=== PATIENT | female | born 1985 | race Caucasian/White ===

== ENCOUNTER 2017-09-22 01:40 | Emergency (ER) | payer MEDICAID, SELFPAY ==
[2017-09-22 01:41] VITALS: BP 155/95; PULSE 87; RESP 18; TEMP 36.6; O2SAT 97; BMI 38.5
--- NOTE | 2017-09-22 02:02 | ED.DCSUM_ITS ---
- ER Visit Summary Date of Service: 09/22/17 Chief Complaint: [] Sore throat History of Present Illness: The patient is a 31 F Zentz with sore throat since 4 PM yesterday gradual onset. Recent influenza. She is Benadryl tonight with mild relief. She also use cough drops Physical Examination: [] Vital signs reviewed General: Well-nourished well-developed Head: Normocephalic atraumatic Eyes: Pupils equal round and reactive to light extraocular movements intact ENT: TMs clear no hemotympanum no trauma throat exam normal Neck: Nontender full range of motion Cardiovascular: Regular rate rhythm no murmurs normal S1-S2 Respiratory: No distress clear to auscultation bilaterally chest nontender Abdomen: Soft nontender nondistended normal bowel sounds no masses Back: Nontender no CVA tenderness Extremities: Nontender active range of motion ?4 extremities no trauma Skin: Normal color no trauma Neuro alert oriented cranial nerves II through XII intact normal strength sensation reflexes Test Results: [] Emergency Department Course and Treatment: [] Reassured. Her throat looks completely normal. She will use cold ice salt water gargles Benadryl as needed. Treatment Plan: [] Disposition: [] Impression: [] Sore throat This note was generated with [employer] dictation software. It may contain incorrect words, spelling, and punctuation that were not noted in review of the chart prior to signing ED Disposition - Plan for ED Patient: Chief Complaint: Sore Throat Referrals: Geovanny Lopez MD [Primary Care Provider] -
--- NOTE | 2017-09-22 02:02 | ED.DEP ---
ED Disposition - Plan for ED Patient: Disposition: Home or Assisted Living Chief Complaint: Sore Throat Instructions: ED Pharyngitis Viral Referrals: Geovanny Lopez MD [Primary Care Provider] -
== END 2017-09-22 02:07 | disposition home or self-care (01) ==
PROVIDERS: Emergency Provider Emergency Medicine; Family Provider Family Medicine; PCP Family Medicine
DX: J02.9 Acute pharyngitis, unspecified (principal)
CPT/HCPCS: 99282

== ENCOUNTER → 2019-02-10 | Outpatient (CLI) | payer MEDICAID, SELFPAY ==
[2019-02-10 17:32] LABS: Hematocrit 36.3 % (37-47); Hemoglobin 12.2 g/dl (12.0-15.0); Mean Corp Hgb Conc 33.6 g/gl (32-36); Mean Corpuscular Hgb 27.7 pg (27.0-32.0); Mean Corpuscular Volume 82.3 fL (81-99); Mean Platelet Vol. 11.1 fl (6.2-12.0); Platelet Count 231 K/mm3 (150-450); RBC Distribution Width SD 38.2 fl (35.1-43.9); Red Blood Count 4.41 M/mm3 (4.2-5.4)
[2019-02-10 17:34] LABS: Scan Indicated on CBC? Y/N NO
[2019-02-10 17:53] LABS: ALB/GLOB Ratio 1.1 RATIO (0.9-2.4); AST(SGOT) 19 U/L (15-37); Alanine Aminotransfer ALT/SGPT 33 U/L (13-56); Albumin, Serum 3.6 g/dL (3.2-5.0); Alkaline Phosphatase 104 U/L (45-117); Anion Gap 9 (5-15); BUN 12 mg/dL (7-18); BUN/Creat Ratio 17.4 RATIO (10-20); Calcium,Total 8.7 mg/dL (8.5-10.1); Chloride 108 mmol/L (98-107); Creatinine, Serum 0.69 mg/dL (0.55-1.02); EST Glomerular Filtration Rate 103 mL/min (>60); Est Glom Filt Rate - Afr Amer 124 mL/min (>60); Free T3 2.8 pg/mL (2.18-3.98); Globulin 3.4 g/dL (2.2-4.2); Glucose 125 mg/dL (74-106); Iron 43 ug/dL (50-170); Sodium Level 144 mmol/L (136-145); T4 Free Direct 0.92 ng/dL (0.76-1.46); Thyroid Stim Hormone (TSH) 0.91 uIU/mL (0.358-3.74)
[2019-02-10 17:56] LABS: Vitamin B12 1361 pg/mL (211-911); Vitamin D,25 Hydroxy 23.2 ng/mL (29.95-100.01)
== END | disposition home or self-care (01) ==
LOC: MFPLAB 14:59
PROVIDERS: Family Provider Family Medicine; PCP Family Medicine; Referring Provider Family Medicine; Visit Provider Family Medicine
DX: R53.83 Other fatigue (principal); R63.5 Abnormal weight gain
CPT/HCPCS: 36415; 80053; 82306; 82533; 82607; 83540; 84439; 84443; 84481; 85027

== ENCOUNTER → 2019-06-10 14:30 | Outpatient (CLI) | payer MEDICAID, SELFPAY ==
[2019-03-31 08:38] VITALS: BMI 38.5
[2019-06-10 16:06] LABS: Iron 38 ug/dL (50-170)
[2019-06-10 16:09] LABS: Internal QC Validated? YES +Cl - CLEAR BKGD
[2019-06-10 16:10] LABS: Pregnancy, Serum, hCG Quali. POSITIVE Negative
[2019-06-10 16:16] LABS: Vitamin B12 919 pg/mL (211-911); Vitamin D,25 Hydroxy 30.2 ng/mL (29.95-100.01)
== END ==
PROVIDERS: Family Provider Family Medicine; PCP Family Medicine; Referring Provider Family Medicine; Visit Provider Family Medicine
DX: D64.9 Anemia, unspecified (principal); R68.89 Other general symptoms and signs; E55.9 Vitamin D deficiency, unspecified; Z32.00 Encounter for pregnancy test, result unknown
CPT/HCPCS: 36415; 82306; 82607; 83540; 84703

== ENCOUNTER → 2019-06-29 15:25 | Outpatient (CLI) | payer MEDICAID, SELFPAY ==
[2019-03-31 08:38] VITALS: BMI 38.5
[2019-06-29 18:11] LABS: Chlamydia Trachomatis by PCR Negative (Negative); Neisserai gonorrhoeae by PCR Negative (Negative); Probe Check PASS; Sample Adequacy Control PASS; Specimen Processing Control PASS
== END ==
PROVIDERS: Family Provider Family Medicine; PCP Family Medicine; Visit Provider Obstetrics & Gynecology
DX: Z32.01 Encounter for pregnancy test, result positive (principal); Z11.3 Encounter for screening for infections with a predominantly sexual mode of transmission
CPT/HCPCS: 36415; 84702; 87491; 87591

== ENCOUNTER 2019-12-10 18:07 | Emergency (ER) | payer MEDICAID, SELFPAY ==
[2019-03-31 08:38] VITALS: BMI 38.5
[2019-12-10 18:10] VITALS: BP 154/98; PULSE 134; RESP 16; TEMP 37.3; O2SAT 100; BMI 41.0
[2019-12-10] MEDS: Tetracaine 0.5% Ophthalmic Bottle 5 DRP LEFT EYE (18:26)
[2019-12-10] MEDS: Fluorescein 1 MG STRIP 1 STRIP LEFT EYE (18:26)
--- NOTE | 2019-12-10 18:35 | ED.VISSUMM ---
- ER Visit Summary Date of Service: 12/10/19 Chief Complaint: Foreign body sensation left eye. History of Present Illness: The patient is a 34 F past medical history of prior ectopic. Patient has a true allergy to prednisone and cortisone. Patient had poison vipul over her whole body including her face for last 3 days. She is a foreign body sensation in her left eye which began today. Denies any visual change. No known trauma. She wears glasses but not contacts. She does not remember scratching her eye. Physical Examination: Young female no acute distress vital signs stable afebrile. HEENT exam pupils are round and reactive to light. Extraocular motions are intact. Tetracaine was placed in the left eye which gave her immediate relief. Fluorescein stain. Slit-lamp examination of the left eye reveals a corneal abrasion between 9 PM and 12:00 on the left eye along the iris and the edge of the pupil. No foreign body. No globe rupture. No signs of infection. No discharge. Her face chest back have a rash consistent with poison vipul. Lungs clear to auscultation. Heart regular rhythm no murmur. Abdomen soft nontender. Moving all 4 extremities. Test Results: None Emergency Department Course and Treatment: History and exam are consistent with a left eye corneal abrasion. She also has poison vipul which she is treating at home already with Benadryl. Treatment Plan: Bacitracin ophthalmic ointment 4 times a day till gone. Tetracaine drops for pain for the next 24 hours then must discard and not use any further. Follow-up with [facility]. Disposition: Discharge Impression: Acute left eye corneal abrasion Generalized poison vipul This note was generated with [employer] dictation software. It may contain incorrect words, spelling, and punctuation that were not noted in review of the chart prior to signing ED Disposition - Plan for ED Patient: Referrals: Geovanny Lopez MD [Primary Care Provider] -
--- NOTE | 2019-12-10 18:39 | ED.DEP ---
ED Disposition - Plan for ED Patient: Disposition: Home or Assisted Living Instructions: ED Corneal Abrasion, ED Dermatitis Poison Leta Referrals: Gonsalo Zamora MD [STAFF PHYSICIAN] - 3-5 Days Additional Instructions: You have a corneal abrasion to your left eye between 9:00 and midnight. You can use the eyedrops for the next 24 hours but not after tomorrow night due to long-term use retards healing. Bacitracin ophthalmic ointment to your left eye 4 times a day till gone. Tylenol and Motrin for pain. Follow-up with [facility] Dr. Zamora for further evaluation of your left eye corneal abrasion.
--- NOTE | 2019-12-10 18:39 | ED.RN ---
Per Dr. Epperson, do not need to do visual acuity.
[2019-12-10 18:44] VITALS: RESP 17
== END 2019-12-10 18:47 | disposition home or self-care (01) ==
PROVIDERS: Emergency Provider Emergency Medicine; PCP Family Medicine
DX: S05.02XA Injury of conjunctiva and corneal abrasion without foreign body, left eye, initial encounter (principal); L23.7 Allergic contact dermatitis due to plants, except food; X58.XXXA Exposure to other specified factors, initial encounter; Y92.9 Unspecified place or not applicable
CPT/HCPCS: 99282

== ENCOUNTER → 2021-05-14 17:23 | Outpatient (CLI) | payer MEDICAID, SELFPAY ==
--- NOTE | 2021-05-14 17:40 | RAD_ITS ---
STUDY: X-RAY CHEST REASON FOR EXAM: Female, 35 years old. SOB TECHNIQUE: PA and lateral views of the chest. COMPARISON: None. FINDINGS: The lungs are clear and expanded. There is no demonstrated pleural abnormality. Normal size heart. Normal mediastinum and kumar. Normal visualized pulmonary arteries. Normal visualized aortic arch and descending thoracic aorta. Normal visualized thoracic spine. Normal visualized ribs, clavicles, and shoulders. There is no demonstrated abnormality of the visualized soft tissue structures of the upper abdomen. RAD/Chest PA and Lateral IMPRESSION: Normal x-ray examination of the chest. Electronically Signed: Nicholas George MD at 5:43 EDT Tel , Service support ,
[2021-05-14 18:00] LABS: Hematocrit 38.4 % (37-47); Hemoglobin 11.8 g/dL (12.0-15.0); Mean Corp Hgb Conc 30.7 g/dL (32-36); Mean Corpuscular Hgb 23.3 pg (27.0-32.0); Mean Corpuscular Volume 75.9 fL (81-99); Mean Platelet Vol. 11.2 fl (6.2-12.0); Platelet Count 297 K/mm3 (150-450); RBC Distribution Width CV 14.8 % (11.6-14.6); RBC Distribution Width SD 40.3 fl (35.1-43.9); RET-HE 27.9 pg (30-35); Red Blood Count 5.06 M/mm3 (4.2-5.4); Reticulocyte Count 1.83 % (0.5-1.5); White Blood Count 6.9 K/mm3 (4.4-11.0)
[2021-05-14 18:51] LABS: Anion Gap 9 (5-15); BUN 13 mg/dL (7-18); BUN/Creat Ratio 18.1 RATIO (10-20); Calcium,Total 9.4 mg/dL (8.5-10.1); Chloride 102 mmol/L (98-107); Creatinine, Serum 0.72 mg/dL (0.55-1.02); EST Glomerular Filtration Rate 97 mL/min (>60); Est Glom Filt Rate - Afr Amer 117 mL/min (>60); Ferritin 5 ng/mL (8-252); Glucose 106 mg/dL (74-106); Iron 27 ug/dL (50-170); Iron Binding Capacity,Total 496 ug/dL (250-450); Magnesium 2.2 mg/dL (1.6-2.6); Sodium Level 139 mmol/L (136-145); Thyroid Stim Hormone (TSH) 1.24 uIU/mL (0.358-3.74)
== END ==
PROVIDERS: PCP Family Medicine; Referring Provider Family Medicine; Visit Provider Family Medicine
DX: R00.2 Palpitations (principal); D64.9 Anemia, unspecified; R06.02 Shortness of breath
CPT/HCPCS: 36415; 71046; 80048; 82728; 83540; 83550; 83735; 84443; 85027; 85045

== ENCOUNTER → 2021-06-25 12:39 | Outpatient (CLI) | payer MEDICAID, SELFPAY ==
--- NOTE | 2021-06-25 12:40 | STEWCON_ITS ---
Reason For Study: Dyspnea Stress Results Protocol: Raymond Protocol WITH DEFINITY Maximum Predicted HR: 183 bpm Target HR: 156 bpm % Maximum Predicted HR: 93 % DurationHeart Rate Stage (mm:ss) (bpm) BP Comment Baseline 98 130/78No Chest Pain; 4 ML Diluted Definity Raymond Protocol Stage I 3:00 155 146/72No Chest Pain; Mild to Mod Dyspnea Raymond Protocol Stage II 1:46 171 / No Chest Pain; Mod to Severe Dyspnea Recovery 109 130/72No Chest Pain; No Dyspnea Stress Duration: 4:46 mm:ss Maximum Stress HR: 171 bpm METS: 7 Baseline Echocardiogram Findings Stress Echo Wall motion Data Resting WM Intermediate WM Stress WM Resting Wall Motion Wall Motion Stress All segments Normal. All segments Hyperkinetic. Ejection Fraction 60 %. Ejection Fraction 70 %. Stress Results Heart rate response: Adequate Blood pressure response: Normal resting blood pressure-appropriate response Cardiac rhythm: No cardiac dysrhythmias reported Functional capacity: Decreased Stopped secondary to: Dyspnea. EKG Data Baseline ECG: Sinus rhythm. Peak exercise ECG: No obvious ECG changes. Symptoms with Stress No report of chest discomfort during exercise or recovery. ECHO/Stress Test Echo W/Contrast Interpretation Summary Contrast injection performed Negative (adequate) stress echocardiogram Ordering Physician: Geovanny Lopez Referring Physician: Nicholas Dale Performed By: Quinton Daniel RCS
== END ==
PROVIDERS: PCP Family Medicine; Referring Provider Family Medicine; Visit Provider Family Medicine
DX: R06.02 Shortness of breath (principal)
CPT/HCPCS: 93017; 93350; Q9957; A4216; C8928; J3490

== ENCOUNTER 2021-09-10 12:13 | Outpatient (CLI) | payer MEDICAID, SELFPAY ==
[2021-09-10 14:04] VITALS: PULSE 100; PULSE 102; PULSE 109; PULSE 116; PULSE 124; PULSE 134; PULSE 94; PULSE 97; O2SAT 100; O2SAT 93; O2SAT 95; O2SAT 96; O2SAT 98; O2SAT 99
--- NOTE | 2021-09-11 07:16 | WT_ITS ---
PSN 6 Minute Walk Test 6 Minute Walk Test 6 Minute Walk Test: 6 Minute Walk Test PSN:6-Minute Walk Test Start: 09/10/21 14:03 Freq: Status: Active Protocol: [id number] Document 09/10/21 14:04 [facility] (Rec: 09/10/21 14:07 [facility] [id number]) 6 Minute Walk Test Date Performed 09/10/21 Time Performed 12:30 Height 5 ft 2.5 in Weight: 108.862 kg Weight in Pounds 240.[address]: David Santamaria Assistive device used: None Pre-test Oxygen Delivery Method Room Air Pulse Ox (%) 100 Pulse Rate (60-100 beats/min) 102 H Dyspnea Yared Scale (0-10) 0 1st minute Oxygen Delivery Method Room Air Pulse Ox (%) 96 Pulse Rate (60-100 beats/min) 97 Dyspnea Yared Scale (0-10) 1 Number of Rests Taken 0 2nd minute Oxygen Delivery Method Room Air Pulse Ox (%) 93 Pulse Rate (60-100 beats/min) 100 Dyspnea Yared Scale (0-10) 2 Number of Rests Taken 0 Reported Symptoms Increased Work of Breathing 3rd minute Oxygen Delivery Method Room Air Pulse Ox (%) 96 Pulse Rate (60-100 beats/min) 109 H Dyspnea Yared Scale (0-10) 3 Number of Rests Taken 0 Reported Symptoms Increased Work of Breathing 4th minute Oxygen Delivery Method Room Air Pulse Ox (%) 95 Pulse Rate (60-100 beats/min) 116 H Dyspnea Yared Scale (0-10) 3 Number of Rests Taken 0 Reported Symptoms Increased Work of Breathing 5th minute Oxygen Delivery Method Room Air Pulse Ox (%) 96 Pulse Rate (60-100 beats/min) 124 H Dyspnea Yared Scale (0-10) 3 Number of Rests Taken 0 Reported Symptoms Increased Work of Breathing 6th minute Oxygen Delivery Method Room Air Pulse Ox (%) 98 Pulse Rate (60-100 beats/min) 134 H Dyspnea Yared Scale (0-10) 3 Number of Rests Taken 0 Reported Symptoms Increased Work of Breathing Post-test Oxygen Delivery Method Room Air Pulse Ox (%) 99 Pulse Rate (60-100 beats/min) 94 Dyspnea Yared Scale (0-10) 0 Full Laps Walked 27 Partial Lap, Number of Tiles Walked 47 Total Distance Walked (ft) 1640 Interpretation Interpretation: The patient ambulated 1640 feet over the course of 6 minutes beginning on room air without assistive devices or breaks. Pretesting oxygen saturation was noted to be 100% on room air. With ambulation, the christy oxygen saturation was 93%. This represents a significant exertional oxygen desatura tion. Recommendations Recommendations: There is no indication for the use of supplemental oxygen at this time.
== END 2021-09-10 23:59 | disposition short-term general hospital (02) ==
LOC: PSN 12:14
PROVIDERS: PCP Family Medicine; Referring Provider Internal Medicine Critical Care Medicine; Visit Provider Internal Medicine Critical Care Medicine
DX: R06.00 Dyspnea, unspecified (principal)
CPT/HCPCS: 94618

== ENCOUNTER 2021-09-12 08:06 | Outpatient (CLI) | payer MEDICAID, SELFPAY ==
--- NOTE | 2021-09-13 10:05 | PFT ---
INTRODUCTION: The patient is a 35-year-old female that presents for pulmonary function studies secondary to a diagnosis of dyspnea. Respiratory therapy reported good patient effort. Bronchodilators were used during testing. INTERPRETATION: Forced expiration spirometry demonstrates no evidence of a large airways obstructive ventilatory defect. There was no significant response to aerosolized bronchodilators. Spirograms are of good quality and plateau normally. Body plethysmography was performed and reveals lung volumes to be within normal limits. Diffusing capacity by single breath CO is within normal limits. IMPRESSION: Grossly normal pulmonary function studies.
== END 2021-09-12 23:59 | disposition short-term general hospital (02) ==
LOC: PSN 08:06
PROVIDERS: PCP Family Medicine; Referring Provider Internal Medicine Critical Care Medicine; Visit Provider Internal Medicine Critical Care Medicine
DX: R06.00 Dyspnea, unspecified (principal)
CPT/HCPCS: 94060; 94726; 94729

== ENCOUNTER 2021-10-22 23:00 | Outpatient (CLI) | payer MEDICAID, SELFPAY | END 2021-10-22 23:59 | disposition home or self-care (01) | PROVIDERS: PCP Family Medicine; Visit Provider Nurse Practitioner Acute Care | DX: G47.10 Hypersomnia, unspecified (principal) | CPT/HCPCS: 95810 ==

== ENCOUNTER 2022-03-19 13:39 | Emergency (ER) | payer MEDICAID, SELFPAY ==
[2022-03-19 13:40] VITALS: BP 189/104; PULSE 105; RESP 16; TEMP 36.6; O2SAT 98; BMI 43.5
--- NOTE | 2022-03-19 13:47 | EKG12_ITS ---
Test Reason : cp Blood Pressure : / mmHG Vent. Rate : 105 BPM Atrial Rate : 105 BPM P-R Int : 154 ms QRS Dur : 070 ms QT Int : 336 ms P-R-T Axes : 076 023 060 degrees QTc Int : 444 ms Sinus tachycardia Otherwise normal ECG Confirmed by DEISY MCNEIL, SARAH ([id number]), industrial editor XIOMARA FUENTES ([id number]) on 03/20/2022 1:23:05 PM Referred By: Confirmed By:SARAH OLIVAS MD
--- NOTE | 2022-03-19 13:58 | RAD_ITS ---
INDICATION: cp EXAMINATION/TECHNIQUE: X-RAY - XR Chest 2 Views COMPARISON: 05/14/2021. FINDINGS: LINES/DEVICES: None. LUNGS: No consolidation, edema or effusion. No pneumothorax. MEDIASTINUM AND CARDIOVASCULAR STRUCTURES: Cardiac silhouette not enlarged. Central airways and mediastinal contour are unremarkable. BONES AND SOFT TISSUES: Unremarkable. RAD/Chest PA and Lateral IMPRESSION: No radiographic evidence of acute cardiopulmonary disease. Electronically Signed: Wil Belcher MD at 14:27 EDT ,
[2022-03-19 14:07] LABS: Absolute Lymphocyte Count 1.88 X10^3/uL (0.83-4.51); Absolute Neutrophil Count 5.4 X10^3/uL (2.0-7.7); Basophil# 0.05 X10^3/uL; Basophil% 0.6 % (0-1); Eosinophil# 1.05 X10^3/uL; Hemoglobin 13.6 g/dL (12.0-15.0); Lymphocyte # 1.88 X10^3/ul (0.83-4.51); Lymphocyte % 21.5 % (19-41); Mean Corp Hgb Conc 32.4 g/dL (32-36); Mean Corpuscular Hgb 25.9 pg (27.0-32.0); Mean Platelet Vol. 10.6 fl (6.2-12.0); Monocyte# 0.34 X10^3/uL; Monocyte% 3.9 % (0-10); NRBC Flagged by Analyzer 0 % (0-5); Neutrophil # 5.35 X10^3/uL (2.7-7.7); Neutrophil % 61.2 % (47-70); Platelet Count 326 K/mm3 (150-450); RBC Distribution Width CV 13.2 % (11.6-14.6); RBC Distribution Width SD 37.7 fl (35.1-43.9); Red Blood Count 5.25 M/mm3 (4.2-5.4); White Blood Count 8.7 K/mm3 (4.4-11.0)
--- NOTE | 2022-03-19 14:12 | EX.ED.DYSGE1 ---
HPI History of Present Illness Chief Complaint: Chest Pain Narrative Narrative: Chief complaint says chest pain. Patient has no chest pain. She is here for left arm and left shoulder pain. Yesterday she had similar symptoms on the right side which seems to have subsided. No fever or chills. There is no back pain or tearing sensation. She has no pleuritic component. She has no lower extremity edema or calf pain. No DVT or PE risk factors. [facility] PFS Medical History Anemia COVID-19 Fatigue Hay fever Pneumonia Home Medications cholecalciferol (vitamin D3) 50 mcg (2,000 unit) capsule 50 mcg PO DAILY 08/19/21 [History Last Taken Unknown] ferrous sulfate 325 mg (65 mg iron) tablet 325 mg PO DAILY 08/19/21 [History Last Taken Unknown] albuterol sulfate 90 mcg/actuation aerosol inhaler (Ventolin HFA) 2 puff inhalation Q4H PRN shortness of breath or wheezing #18 grams 12/24/21 [Rx Last Taken Unknown] azithromycin 250 mg tablet 250 mg PO DAILY 03/19/22 [History Last Taken Unknown] Allergy/AdvReac Type Severity Reaction Status Date / Time cortisone Allergy Severe Hives Verified 03/19/22 13:42 prednisone Allergy Severe Anaphylaxis Verified 03/19/22 13:42 Family History Mother Cancer cervical Grandmother Kidney failure Grandfather Hypertension Grandmother Congestive heart failure Grandfather Alzheimer disease Surgical History History of salpingectomy Social History Smoking Status: Never smoker alcohol intake: current alcohol intake frequency: a few times a month Alcohol type: wine ROS ROS ED ROS Narrative Past medical history: Reviewed, mostly unremarkable. Medications: Reviewed Social history: Noncontributory Review of systems: All systems negative except as indicated General: No fever Eyes: No visual changes ENT: No upper airway congestion, normal voice Neck: No neck pain Cardiovascular: No chest pain. No palpitations. No pleuritic component. Respiratory: No shortness of breath or cough Gastrointestinal: No abdominal pain, nausea vomiting or diarrhea Genitourinary: No dysuria Musculoskeletal: Left shoulder pain. Skin: No rash Neurological: No memory loss, confusion or any focal weakness Psych: No recent behavioral changes Hematologic: No easy bleeding or easy bruising EXAM Physical Exam Narrative Exam Narrative: Physical exam General: Well nourished, Well developed, No Acute Distress Head: Normocephalic, Atraumatic Eyes: Conjunctiva not pale ENT: Moist mucous membranes Neck: Supple, Nontender, No lymphadenopathy Cardiovascular: Regular rate, Regular rhythm Respiratory: No distress, CTA bilaterally Abdomen: Soft, Nontender, Nondistended Back: Nontender, Normal Inspection. Negative for: CVA tenderness Extremities: Full range of motion of the shoulder, some tenderness over the insertion of the bicep proximally, however no bony tenderness. Skin: Normal color, No rash Neurological: Alert, Normal Strength, Normal Sensation Psychological: Normal affect Const Vital Signs: 03/19/22 13:40 03/19/22 13:45 03/19/22 14:45 Temperature 98 F Temperature Source Temporal Pulse Rate 105 H 99 Respiratory Rate 16 23 H Respiratory Effort Normal Non-Labored Blood Pressure 189/104 H 140/82 H Blood Pressure Mean 132 101 Pulse Ox 98 99 Oxygen Delivery Method Room Air Room Air MDM MDM Lab Data Labs: Laboratory Results - last 24 hr 03/19/22 03/19/22 03/19/22 14:00 14:00 14:00 WBC 8.7 RBC 5.25 Hgb 13.6 Hct 42.0 MCV 80.0 L MCH 25.9 L MCHC 32.4 RDW Std Deviation 37.7 RDW Coeff of Alejandro 13.2 Plt Count 326 MPV 10.6 Immature Gran % (Auto) 0.800 Neut % (Auto) 61.2 Lymph % (Auto) 21.5 [place] % (Auto) 3.9 Eos % (Auto) 12.0 H Baso % (Auto) 0.6 Absolute Neuts (auto) 5.4 Absolute Lymphs (auto) 1.88 Nucleated RBC % 0 D-Dimer Quant (PE/DVT) 0.86 H* Sodium 138 Potassium 3.7 Chloride 106 Carbon Dioxide 27.0 Anion Gap 5 BUN 9 Creatinine 0.82 Estim Creat Clear Calc 73.57 Est GFR (MDRD) Af Amer 100 Est GFR (MDRD) Non-Af 83 BUN/Creatinine Ratio 11.0 Glucose 139 H Calcium 9.4 Total Bilirubin 0.30 AST 15 ALT 23 Alkaline Phosphatase 101 Troponin I High Sens 3 Total Protein 7.6 Albumin 3.6 Globulin 4.0 Albumin/Globulin Ratio 0.9 Radiography Diagnostic Testing: Clinical Impression(s) from Imaging Studies Chest X-Ray 03/19/22 13:58 IMPRESSION: No radiographic evidence of acute cardiopulmonary disease. Electronically Signed: Wil Belcher MD at 14:27 EDT , Chest CTA 03/19/22 14:23 IMPRESSION: 1. Mild pneumonic consolidation and groundglass edema is present in the central to inferior aspect of the right upper lobe and within the right middle lobe. 2. Minor groundglass edema and a small peripheral infiltrate are also present in the right lower lobe. The left lung is clear. 3. No demonstrated pulmonary embolism or arterial dissection. Electronically Signed: Gómez Bradshaw MD at 15:15 EDT , Chest x-ray read by me and radiologist is normal EKG Initial EKG: Comments: Sinus rhythm with a rate of 105. Normal AL and QTc intervals. No ischemic changes. Interpreted by emergency doctor. Treatment and Re-Evaluation Narrative: Patient has a normal work-up she appears well. She does not have any evidence of thromboembolic disease or coronary disease. I believe she is stable for discharge. She can follow-up with her PCP Discharge Plan Triage Chief Complaint: Chest Pain ED Provider: Nicholas Carolina Dx/Rx/DC Orders Clinical Impression: Arm pain, Acute shoulder pain Instructions: Measuring Your Pain, Medicine for Pain Prescriptions: No Action ferrous sulfate 325 mg (65 mg iron) tablet 325 mg PO DAILY cholecalciferol (vitamin D3) 50 mcg (2,000 unit) capsule 50 mcg PO DAILY albuterol sulfate [Ventolin HFA] 90 mcg/actuation HFA aerosol inhaler 2 puff inhalation Q4H PRN (Reason: shortness of breath or wheezing) Qty: 18 6RF azithromycin 250 mg tablet 250 mg PO DAILY Primary Care Provider: Geovanny Lopez Referrals: Geovanny Lopez MD [Primary Care Provider] - 2 Days Disposition Disposition: Home, Self Care
[2022-03-19 14:20] LABS: D-Dimer Quantitative (DVT/PE) 0.86 FEU/ug/m (0.27-0.49)
--- NOTE | 2022-03-19 14:23 | CT_ITS ---
STUDY: CTA CHEST REASON FOR EXAM: Female, 36 years old. cp RADIATION DOSAGE (If Supplied By Facility): CTDIvol = ( 11.32 ) mGy, DLP = ( 522.39 ) mGycm TECHNIQUE: The examination was performed with the intravenous administration of IV 100mL Isovue-300. Post-processing of the angiographic images was performed, with multiplanar reformation and 3D reconstruction. Individualized dose optimization techniques were used for this CT. COMPARISON: Chest x-ray dated March 19, 2022 FINDINGS: Mild pneumonic consolidation and groundglass edema is present in the central to inferior aspect of the right upper lobe and within the right middle lobe. Minor groundglass edema and a small peripheral infiltrate are also present in the right lower lobe. The left lung is clear. Normal enhancement of the main pulmonary artery and right and left pulmonary arteries. Normal enhancement of the bilateral peripheral pulmonary arteries. There is no demonstrated pulmonary embolism. Normal thoracic aorta and visualized great vessels. There is no demonstrated aortic dissection. Normal heart and pericardium. There are no demonstrated calcifications of the coronary arteries. Normal mediastinum. Normal hilar regions. Normal visualized trachea and bronchi. The lungs are well expanded. Normal pleura. Normal chest wall structures. There are degenerative changes of thoracic spine. Normal visualized upper abdomen. CT/CTA Chest W/WO Contrast IMPRESSION: 1. Mild pneumonic consolidation and groundglass edema is present in the central to inferior aspect of the right upper lobe and within the right middle lobe. 2. Minor groundglass edema and a small peripheral infiltrate are also present in the right lower lobe. The left lung is clear. 3. No demonstrated pulmonary embolism or arterial dissection. Electronically Signed: Gómez Bradshaw MD at 15:15 EDT ,
[2022-03-19 14:26] LABS: ALB/GLOB Ratio 0.9 RATIO (0.9-2.4); AST(SGOT) 15 U/L (15-37); Alanine Aminotransfer ALT/SGPT 23 U/L (13-56); Albumin, Serum 3.6 g/dL (3.2-5.0); Alkaline Phosphatase 101 U/L (45-117); Anion Gap 5 (5-15); BUN 9 mg/dL (7-18); Calcium,Total 9.4 mg/dL (8.5-10.1); Chloride 106 mmol/L (98-107); Creatinine, Serum 0.82 mg/dL (0.55-1.02); EST Glomerular Filtration Rate 83 mL/min (>60); Est Glom Filt Rate - Afr Amer 100 mL/min (>60); Estimated Creatinine Clearance 73.57 ml/min; Glucose 139 mg/dL (74-106); Potassium 3.7 mmol/L (3.5-5.1); Protein, Total 7.6 g/dL (6.4-8.2); Sodium Level 138 mmol/L (136-145); Troponin-I HS 3 pg/mL (3.0-54.0)
[2022-03-19 14:45] VITALS: BP 140/82; PULSE 99; RESP 23; O2SAT 99
--- NOTE | 2022-03-19 16:03 | ED.RN ---
Pt requested lab work, radiology reports, and radiology disk. Pt signed consent form to have info released to her. Records given prior to discharge.
== END 2022-03-19 16:03 | disposition home or self-care (01) ==
PROVIDERS: Emergency Provider Emergency Medicine; PCP Family Medicine; Visit Provider Emergency Medicine
DX: M25.512 Pain in left shoulder (principal); M79.602 Pain in left arm; Z86.16 Personal history of COVID-19; D64.9 Anemia, unspecified
CPT/HCPCS: 71046; 71275; 80053; 84484; 85025; 85379; 93005; 99284; Q9967; A4216

== ENCOUNTER 2022-07-11 07:00 | Outpatient (RCR) | payer MEDICAID, SELFPAY ==
--- NOTE | 2022-01-17 08:20 | HP.PTEVAL_ITS ---
Patient's Visit Information DAVID WHITLOCK is a 36 year old F referred to Physical Therapy by AJ Marsh with a diagnosis of R biceps tendonitis. Date of Evaluation: 01/17/22 Physical Therapist: Alex Alba, PT, ATC - Visit Plan Frequency: 3x /Week Duration: 4 Weeks Plan: R biceps strengthening, stretching, `DTR, stick rollout, UBE, and HEP - Subjective Pt reports she has had R biceps pain for about 4 weeks. Pt notes she dislocated her R shoulder at the age of 14 and reports she was told she had a torn labrum at that time but her family was against surgery, so she never had it repaired. Pt notes she has had problems with her shoulder ever since. Pt notes her shoulder feels like it gives out on her at times, and she still has never gained full ROM since. about 4 weeks ago, she moved her shoulder and experienced a popping sensation that resulted in severe pain. Pt notes she went to the urgent care and was referred to the orthopedic. Pt notes she was placed on meloxican, and is feeling a little better now. Pt reports she still has difficulty with putting on a seatbelt secondary to pain. Pt reports she is mostly sore on the superior portion of her R biceps region. Pt reports she has a hard time with most of her IADLs because she has no strength in her R UE, and it all results in pain. Pt notes she has difficulty with baking and washing dishes. Pt reports significant sleep difficulty whiteout the Meloxican. No tingling or numbness in R UE. Pt reports she has had xrays that reveal some calcium deposits in R shoulder. 2/10 pain at rest, 6/10 pain at worst. Pt is R hand dominant. - Pain R shoulder Pain Intensity (Out of 10): 2 Pain Intensity Range: 6 - Objective Neuro: B LE sensation is WNL to light touch. B bicipital reflex= 2/3. Palpation: Pt is mostly sore along the middle third of R biceps region. No obvious deformity at this time. ROM: L shoulder flex= 160, abd= 150, ER= 70, IR WNL. R shoulder flex= 115, abd= 85, ER= 45, IR severely limited (cant get arm behind back). MMT: L shoulder flex= 20, abd= 22, ER= 20, IR= 22 #F; R shoulder flex= 8, abd= 8, ER= 8, IR= 18 #F. Special tests: pos speeds test, - Balance/Special Test Scores Quick DASH Score: 68.1800 - Goals Goal 1:: Decrease R UE pain x 50% to aid with sleep Goal Time Frame: 4-6 Weeks Goal 2:: Increase R UE strength x 5-10 #F to aid with IADL's Goal Time Frame: 4-6 Weeks Goal 3:: Increase R shoulder ROM flexion and abduction x 30 degrees to aid with IADL's Goal Time Frame: 4-6 Weeks Goal 4:: I with HEP Goal Time Frame: 4-6 Weeks - Rehabilitation Potential Physical Therapy Diagnosis: Pt has R UE pain, weakness, and limited ROM seconda ry to R biceps tendonitis Rehabilitation Potential: Good - Anticipated Interventions Patient/Client Instruction: Educate patient on: Condition For the Purpose of:: To improve self management Therapeutic Exercise to Include: Strength training, Flexibilty training, Passive ROM, Active ROM For the Purpose of:: To decrease pain, To increase ROM, To improve muscle performance and motor function Manual Therapy Techniques to Include: Soft tissue mobilization For the Purpose of:: To decrease pain, To increase ROM Ultrasound (thermal/non thermal): Yes For the Purpose of:: To decrease pain Thank you for the opportunity to evaluate your patient. For Medicare and Medicare HMO plans, please review the plan of care and approve it. It will need to be FAXED BACK to us at [phone] for Medicare purposes. For Medicare only, by signing this I certify the plan of care. Please let me know if there are questions or concerns regarding this plan of care. Physician Signature: Date:
--- NOTE | 2022-03-07 07:48 | HP.PTREVAL ---
AJ Marsh, It has been my pleasure to treat DAVID WHITLOCK over the last 9 visits for R biceps tendonitis. Please see the progress note below for an update on the physical therapy plan of care! Subjective: I am able to do a lot more than i used to be able to do. I am still very limited though Objective/Function: R shoulder pain 2/10, increases to 6/10 at worst. R shoulder MMT: flex= 8.5, abd= 8, ER= 13, IR= 10 #F. R shoulder ROM: flex= 130, abd= 130 degrees. Pt is progressing well toward Rx goals Plan Plan: R biceps strengthening, stretching, DTR, stick rollout, UBE, and HEP Balance/Gait/Functional tests - Balance/Special Test Scores Quick DASH Score: 36.3625 Goals Goal 1:: Decrease R UE pain x 50% to aid with sleep Goal Time Frame: 4-6 Weeks Goal Progress: Progressing Goal 2:: Increase R UE strength x 5-10 #F to aid with IADL's Goal Time Frame: 4-6 Weeks Goal Progress: Progressing Goal 3:: Increase R shoulder ROM flexion and abduction x 30 degrees to aid with IADL's Goal Time Frame: 4-6 Weeks Goal Progress: Progressing Goal 4:: I with HEP Goal Time Frame: 4-6 Weeks Goal Progress: Goal Met Anticipated Interventions Patient/Client Instruction: Educate patient on: Condition For the Purpose of:: To improve self management Therapeutic Exercise to Include: Strength training, Flexibilty training, Passive ROM, Active ROM For the Purpose of:: To decrease pain, To increase ROM, To improve muscle performance and motor function Manual Therapy Techniques to Include: Soft tissue mobilization For the Purpose of:: To decrease pain, To increase ROM Ultrasound (thermal/non thermal): Yes For the Purpose of:: To decrease pain Please do not hesitate to contact me at [phone] by phone or if you have questions or concerns regarding this new plan of care! Sincerely, Alex Alba, PT, ATC
--- NOTE | 2022-04-07 09:32 | HP.PTREVAL ---
AJ Marsh, It has been my pleasure to treat DAVID WHITLOCK over the last 17 visits for R biceps tendonitis. Please see the progress note below for an update on the physical therapy plan of care! Subjective: I am getting a lot better, but still feels like she lacks a lot of R UE strength. 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 R shoulder pain 2/10, increases to 4/10 at worst. R shoulder MMT: flex= 9.7, abd= 20, IR= 13, ER= 12 #F. Pt has achieved ROM and pain goals, still lacks functional strength for IADL's Plan Plan: Cont to focus on strengthening and ROM of the R shoulder Balance/Gait/Functional tests - Balance/Special Test Scores Quick DASH Score: 36.3625 Goals Goal 1:: Decrease R UE pain x 50% to aid with sleep Goal Time Frame: 4-6 Weeks Goal Progress: Goal Met Goal 2:: Increase R UE strength x 5-10 #F to aid with IADL's Goal Time Frame: 4-6 Weeks Goal Progress: Progressing Goal 3:: Increase R shoulder ROM flexion and abduction x 30 degrees to aid with IADL's Goal Time Frame: 4-6 Weeks Goal Progress: Progressing Goal 4:: I with HEP Goal Time Frame: 4-6 Weeks Goal Progress: Goal Met Anticipated Interventions Patient/Client Instruction: Educate patient on: Condition For the Purpose of:: To improve self management Therapeutic Exercise to Include: Strength training, Flexibilty training, Passive ROM, Active ROM For the Purpose of:: To decrease pain, To increase ROM, To improve muscle performance and motor function Manual Therapy Techniques to Include: Soft tissue mobilization For the Purpose of:: To decrease pain, To increase ROM Ultrasound (thermal/non thermal): Yes For the Purpose of:: To decrease pain Please do not hesitate to contact me at [phone] by phone or if you have questions or concerns regarding this new plan of care! Sincerely, Alex Alba, PT, ATC
--- NOTE | 2022-05-05 17:05 | HP.PTREVAL ---
AJ Marsh, It has been my pleasure to treat DAVID WHITLOCK over the last 25 visits for R biceps tendonitis. Please see the progress note below for an update on the physical therapy plan of care! Subjective: My strength is still lacking, ROM is good Objective/Function: R shoulder pain ranges from 2-6/10. R shoulder MMT: flex= 11, abd= 21, ER= 16, IR= 16 #F. R shoulder ROM: flex= 155, abd= 125, ER= 55, IR WNL Plan Plan: Cont to focus on strengthening and ROM of the R shoulder Balance/Gait/Functional tests - Balance/Special Test Scores Quick DASH Score: 29.5450 Goals Goal 1:: Decrease R UE pain x 50% to aid with sleep Goal Time Frame: 4-6 Weeks Goal Progress: Goal Met Goal 2:: Increase R UE strength x 5-10 #F to aid with IADL's Goal Time Frame: 4-6 Weeks Goal Progress: Progressing Goal 3:: Increase R shoulder ROM flexion and abduction x 30 degrees to aid with IADL's Goal Time Frame: 4-6 Weeks Goal Progress: Progressing Goal 4:: I with HEP Goal Time Frame: 4-6 Weeks Goal Progress: Goal Met Anticipated Interventions Patient/Client Instruction: Educate patient on: Condition For the Purpose of:: To improve self management Therapeutic Exercise to Include: Strength training, Flexibilty training, Passive ROM, Active ROM For the Purpose of:: To decrease pain, To increase ROM, To improve muscle performance and motor function Manual Therapy Techniques to Include: Soft tissue mobilization For the Purpose of:: To decrease pain, To increase ROM Ultrasound (thermal/non thermal): Yes For the Purpose of:: To decrease pain Please do not hesitate to contact me at [phone] by phone or if you have questions or concerns regarding this new plan of care! Sincerely, Alex Alba, PT, ATC
--- NOTE | 2022-06-04 07:28 | HP.PTREVAL ---
AJ Marsh, It has been my pleasure to treat DAVID WHITLOCK over the last 33 visits for R biceps tendonitis. Please see the progress note below for an update on the physical therapy plan of care! Subjective: Pt reports she is doing a lot better, but still has a long way to go. Pt reports she still has a very difficult time with lifting objects at work secondary to pain. Objective/Function: R shoulder pain is currently 2/10, 6/10 at worst. R shoulder ROM: flex= 140, abd= 130. R shoulder MMT: flex= 11.8, abd= 18, ER= 12.8, IR= 17.5 #F. Pt is showing significant improvements with ROM and strength, but still lacks functional strength to complete job requirements Plan Plan: Attempt to get 12 more visits approved to focus on functional strength for work requirements Balance/Gait/Functional tests - Balance/Special Test Scores Quick DASH Score: 31.8175 Goals Goal 1:: Decrease R UE pain x 50% to aid with sleep Goal Time Frame: 4-6 Weeks Goal Progress: Goal Met Goal 2:: Increase R UE strength x 5-10 #F to aid with IADL's Goal Time Frame: 4-6 Weeks Goal Progress: Progressing Goal 3:: Increase R shoulder ROM flexion and abduction x 30 degrees to aid with IADL's Goal Time Frame: 4-6 Weeks Goal Progress: Goal Met Goal 4:: I with HEP Goal Time Frame: 4-6 Weeks Goal Progress: Goal Met Goal 5:: Pt will be able to perform all work duties without any increase in pain Goal Time Frame: 4-6 Weeks Goal Progress: New goal Anticipated Interventions Patient/Client Instruction: Educate patient on: Condition For the Purpose of:: To improve self management Therapeutic Exercise to Include: Strength training, Flexibilty training, Passive ROM, Active ROM For the Purpose of:: To decrease pain, To increase ROM, To improve muscle performance and motor function Manual Therapy Techniques to Include: Soft tissue mobilization For the Purpose of:: To decrease pain, To increase ROM Ultrasound (thermal/non thermal): Yes For the Purpose of:: To decrease pain Please do not hesitate to contact me at [phone] by phone or if you have questions or concerns regarding this new plan of care! Sincerely, Alex Alba, PT, ATC
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
== END 2022-07-11 11:21 | disposition home or self-care (01) ==
LOC: PT 07:00
PROVIDERS: PCP Family Medicine; Referring Provider Physician Assistant; Visit Provider Physician Assistant
DX: M75.21 Bicipital tendinitis, right shoulder (principal)
CPT/HCPCS: 97110; 97161; 97164

== ENCOUNTER → 2022-09-04 | Outpatient (CLI) | payer MEDICAID, SELFPAY ==
--- NOTE | 2022-09-04 06:31 | MRI_ITS ---
STUDY: MRI RIGHT SHOULDER REASON FOR EXAM: Female, 36 years old. pain ANTERIORLY TECHNIQUE: Standardized fat and water weighted pulse sequences were obtained in all 3 orthogonal planes. COMPARISON: Right shoulder x-ray dated January 02, 2022 FINDINGS: There is a 3.8 mm small interstitial tear near the bursal surface of the supraspinatus tendon at the anterior musculotendinous junction, see image 08/05 series 5. The remaining aspects of the supraspinatus tendon on within normal limits. A small glenohumeral joint effusion is also present. No visualize marrow edema or AVN or occult fracture. Normal infraspinatus tendon. Normal subscapularis tendon. Normal teres minor tendon. Normal supraspinatus muscle. Normal infraspinatus muscle. Normal subscapularis muscle. Normal teres minor muscle. Normal glenohumeral articulation. Normal humeral head and visualized proximal humerus. Normal biceps labral complex. Normal intracapsular long biceps tendon. Normal labrum. Normal capsulo- ligamentous complex. Normal rotator interval. Normal acromioclavicular articulation. There is a Type II morphology (curved), with a neutral orientation. There is no subacromial-subdeltoid bursal fluid. Normal visualized coracohumeral and coracoacromial ligaments. Normal quadrilateral space. Normal axillary space. Normal deltoid muscle. Normal trapezius muscle. MRI/Upper Ext Joint Only(Routine) IMPRESSION: 1. There is a 3.8 mm small interstitial tear near the bursal surface of the supraspinatus tendon at the anterior musculotendinous junction, see image 08/05 series 5. The remaining aspects of the supraspinatus tendon on within normal limits. A small glenohumeral joint effusion is also present. No visualize marrow edema or AVN or occult fracture. Electronically Signed: Gómez Bradshaw MD at 12:00 EST ,
== END | disposition home or self-care (01) ==
LOC: MRI 06:31
PROVIDERS: PCP Family Medicine; Referring Provider Physician Assistant; Visit Provider Physician Assistant
DX: S46.811A Strain of other muscles, fascia and tendons at shoulder and upper arm level, right arm, initial encounter (principal); M25.411 Effusion, right shoulder; M75.21 Bicipital tendinitis, right shoulder
CPT/HCPCS: 73221

== ENCOUNTER → 2023-06-18 | Outpatient (CLI) | payer MEDICAID, SELFPAY ==
[2023-06-18 17:35] LABS: Hematocrit 39.2 % (37-47); Hemoglobin 12.2 g/dL (12.0-15.0); Mean Corp Hgb Conc 31.1 g/dL (32-36); Mean Corpuscular Hgb 24.7 pg (27.0-32.0); Mean Corpuscular Volume 79.4 fL (81-99); Mean Platelet Vol. 11.4 fl (6.2-12.0); Platelet Count 251 K/mm3 (150-450); RBC Distribution Width CV 14.2 % (11.6-14.6); RBC Distribution Width SD 40.9 fl (35.1-43.9); Red Blood Count 4.94 M/mm3 (4.2-5.4); White Blood Count 6.5 K/mm3 (4.4-11.0)
[2023-06-18 17:55] LABS: Hemoglobin A1c 5.7 % (3.8-5.6)
[2023-06-18 18:02] LABS: Vitamin B12 588 pg/mL (211-911); Vitamin D,25 Hydroxy 28.7 ng/mL
[2023-06-18 18:04] LABS: Erythrocyte Sedimentation Rate 17 mm/hr (0-30)
[2023-06-18 19:25] LABS: ALB/GLOB Ratio 0.8 RATIO (0.9-2.4); AST(SGOT) 8 U/L (15-37); Alanine Aminotransfer ALT/SGPT 22 U/L (13-56); Albumin, Serum 3.5 g/dL (3.2-5.0); Alkaline Phosphatase 89 U/L (45-117); Anion Gap 8 (5-15); BUN 14 mg/dL (7-18); BUN/Creat Ratio 19.4 RATIO (10-20); Calcium,Total 8.9 mg/dL (8.5-10.1); Chloride 105 mmol/L (98-107); Creatinine, Serum 0.72 mg/dL (0.55-1.02); EST Glomerular Filtration Rate 96 mL/min (>60); Est Glom Filt Rate - Afr Amer 116 mL/min (>60); Estradiol 148.6 pg/mL; Ferritin 8 ng/mL (8-252); Free T3 2.8 pg/mL (2.18-3.98); Globulin 4.2 g/dL (2.2-4.2); Glucose 118 mg/dL (74-106); Iron 45 ug/dL (50-170); Potassium 3.9 mmol/L (3.5-5.1); Protein, Total 7.7 g/dL (6.4-8.2); Sodium Level 138 mmol/L (136-145); Thyroid Stim Hormone (TSH) 1.13 uIU/mL (0.358-3.74)
== END | disposition home or self-care (01) ==
LOC: MTLAB 16:09
PROVIDERS: PCP Family Medicine; Referring Provider Family Medicine; Visit Provider Family Medicine
DX: R53.83 Other fatigue (principal); R63.5 Abnormal weight gain; N92.0 Excessive and frequent menstruation with regular cycle
CPT/HCPCS: 80053; 82306; 82533; 82607; 82627; 82670; 82728; 83036; 83540; 84403; 84439; 84443; 84481; 85027; 85652; 82626

== ENCOUNTER 2023-11-19 21:13 | Emergency (ER) | payer MEDICAID, SELFPAY ==
[2023-11-19 21:14] VITALS: BP 166/88; PULSE 120; RESP 18; TEMP 37; O2SAT 99; BMI 44.5
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
[2023-11-19] MEDS: Morphine 4 MG/ML Syringe IM (21:43)
[2023-11-19] MEDS: Ondansetron ODT 4 MG Tablet PO (21:43)
[2023-11-19 22:12] VITALS: BP 148/78; PULSE 16; RESP 16; TEMP 36.7; O2SAT 98
== END 2023-11-19 22:14 | disposition home or self-care (01) ==
PROVIDERS: Emergency Provider Emergency Medicine; PCP Family Medicine; Visit Provider Emergency Medicine
DX: T23.292A Burn of second degree of multiple sites of left wrist and hand, initial encounter (principal)
CPT/HCPCS: 96372; 99282

== ENCOUNTER 2024-09-21 22:12 | Emergency (ER) | payer MEDICAID, SELFPAY ==
[2024-09-21 22:13] VITALS: BP 152/82; PULSE 128; RESP 18; TEMP 37; O2SAT 100; BMI 41.2
--- NOTE | 2024-09-21 22:53 | EDS_ITS ---
HPI HPI - URI History of Present Illness Chief Complaint: Cold Sx Informant: patient Onset/Context/Timing Onset: Days Context: Gradual Onset Timing: Continuous Current Severity: Mild Maximum Severity: Mild Associated Symptoms Associated Symptoms: Positive for Myalgias, Nausea and Nonproductive cough Narrative Narrative: 38-year-old female currently 33 weeks with a history of gestational diabetes. G9, P8 with 1 prior ectopic and 1 prior twin . States she has had URI symptoms with a cough and fever around 105 last several days. Nausea but no vomiting or diarrhea. Decreased p.o. intake. Several family members and children at home with similar symptoms. She denies any dysuria. Currently being seen by [facility]. Prior similar symptoms: Yes Recent Illness/Hospitalization: No ROS ROS ED ROS Narrative Cough. Fever. Body aches. Constitutional Constitutional ED: Reports chills and fever(s) ENT ENT ED: Reports rhinorrhea Cardiovascular Cardiovascular: Denies chest pain Respiratory/Chest Respiratory/Chest: Reports cough; Denies dyspnea Gastrointestinal Gastrointestinal: Reports nausea; Denies abdominal pain, constipation, diarrhea, melena or vomiting Genitourinary Genitourinary ED: Denies dysuria or hematuria Musculoskeletal Musculoskeletal: Denies arthralgias Integumentary Denies abscess Neurologic Neurologic: Denies paresthesias Psychiatric Psychiatric: Denies anxiety Endocrine Endocrinology: Denies cold intolerance Hematologic/Lymphatic Hematologic/Lymphatic: Denies easy bleeding or easy bruising Allergic/Immunologic Allergic/Immunologic ED: Denies mouth swelling [facility] Medical History Migraines COVID-19 Pneumonia Hay fever Fatigue Anemia Home Medications ?Medication ?Instructions ?Recorded ?Last Taken ?Type bacitracin 500 unit/gram topical 1 applic topical TID #14 grams 11/19/23 Unknown Rx ointment ascorbic acid (vitamin C) 500 mg mg PO 07/30/24 Unknow n History capsule aspirin 81 mg chewable tablet 1 tab PO QDAY 07/30/24 U nknown History cholecalciferol (vitamin D3) 50 50 mcg PO QDAY 4 Unknown History mcg (2,000 unit) capsule insulin glargine 100 unit/mL (3 unit subcut 07/30/24 U nknown History mL) subcutaneous pen (Lantus Solostar U-100 Insulin) vitamin no.115-iron 29 1 tab PO QDAY 07/30/24 Unknown History mg-folic acid 1 mg chewable tablet ( 19) ondansetron 4 mg disintegrating 4 mg PO Q6H PRN nausea and 09/22/24 Unknown Rx tablet vomiting #7 tabs Allergy/AdvReac Type Severity Reaction Status Date / Time cortisone Allergy Severe Hives Verified 09/21/24 22:16 prednisone Allergy Severe Anaphylaxis Verified 09/21/24 22:16 Family History Mother Cancer cervical Grandmother Kidney failure Grandfather Hypertension Grandmother Congestive heart failure Grandfather Alzheimer disease Surgical History History of salpingectomy Social History Smoking Status: Never smoker alcohol intake: current alcohol intake frequency: a few times a month Alcohol type: wine EXAM Physical Exam Narrative Exam Narrative: 38-year-old female vital signs stable initial pulse 128. Pulse ox 9% room air no signs hypoxia. She does not look septic or toxic. Significant other at bedside. H EENT exam pupils round react light. Mildly dry mucous membranes. Posterior pharynx unremarkable. No trouble swallowing or breathing. TMs normal. Neck nontender no lymphadenopathy. No meningismus. Able to flex and extend her neck. Lungs clear to auscultation bilaterally. Dry cough. Heart tachycardic rate about 120 no murmur. Chest wall ribs nontender. Abdomen soft nontender. Gravid nontender uterus. Moving all 4 extremities. Normal strength. Normal range of motion. Nontender. No hot or swollen joints. Skin no rashes. Back nontender. Neurologically she is awake and alert no focal motor deficits. Const Vital Signs: 09/21/24 22:13 09/21/24 23:29 09/21/24 23:32 Temperature 98.6 F Temperature Source Temporal Pulse Rate 128 H Respiratory Rate 18 Respiratory Effort Normal Respiratory Pattern Normal Blood Pressure 152/82 H 140/98 H Blood Pressure Mean 105 112 Pulse Ox 100 Oxygen Delivery Method Room Air Positive well nourished and well developed; Negative for cachectic or contractures General Appearance ED: well developed and NAD; Negative for cachectic, contractures, cyanotic, diaphoretic or pallor Nutritional Appearance: Negative for cachectic HEENT Reports dry mucous membranes; Denies moist mucous membranes normocephalic and atraumatic Face and Sinus: Negative for sinus tenderness Mouth ED: Yes dry mucous membranes Mouth: dry mucous membranes Teeth and Gingiva: Negative for caries Throat: posterior oropharynx normal Eyes PERRL and EOMs intact bilaterally General Eye ED: Negative for scleral icterus Neck no lymphadenopathy, supple and no meningeal signs General: Negative for anterior neck swelling or lymphadenopathy Resp normal respiratory effort and clear to auscultation bilaterally Resp Narrative: Dry cough. Auscultation: Negative for rales, rhonchi, wheezes or diminished lung sounds Cardio S1 normal heart sound, S2 normal heart sound and no murmurs Rate: tachycardic Rhythm: regular rhythm GI non-tender, non-distended and no masses GI Narrative: Gravid nontender uterus. Palpation: soft; Negative for tender, guarding or mass Back/Spine no CVA tenderness and normal ROM General Back: Negative for CVA tenderness Cervical Spine: Negative for cervical spine tenderness Thoracic Spine / Upper Back: Negative for thoracic spinal tenderness Lumbar Spine / Lower Back: Negative for lumbar spinal tenderness Sacrum: Negative for tenderness Extremity normal to inspection and full ROM General Extremety ED: Negative for cyanosis, tenderness or other findings General Extremity: Negative for cyanosis or other findings Neuro oriented x3 and CN's II-XII intact bilaterally Sensorium / Orientation: alert, oriented to person, oriented to place and oriented to time; Negative for orientation impaired, lethargic or stuporous Motor Exam: strength 5/5 throughout Psych mental status grossly normal Appearance: Negative for other Attitude: No agitated Mood & Affect: Negative for depressed, anxious or tearful Skin General Skin Exam: Negative for jaundice or pallor Lesions: no lesions Rashes: no rashes Trauma: Negative for abrasion, laceration or puncture MDM MDM MDM Narrative Medical decision making narrative: 38-year-old female most likely is a viral URI. She is with gestational diabetes. I will get screening labs. She will be given Zofran for nausea and a liter normal saline. Chest x-ray to rule out pneumonia which clinically have a low suspicion for and a COVID and flu test. Repeat exam patient doing well at 11:55 PM. We went over her chest x-ray and chemistry panel. Awaiting her COVID and flu test. She is up ambulating to the restroom. Patient doing well at 12:34 AM. Will be discharged to home. History & Record Review Discussion w/independent historian: Patient Lab Data Attestation: I reviewed the patient's lab results. Lab results narrative: Chemistries show a sodium 135. Gap 13. BUN of 5 creatinine 0.54. Glucose 97. Chest x-ray negative. COVID negative. Influenza A positive. Labs: Laboratory Results - last 24 hr 09/21/24 09/21/24 23:13 23:20 Sodium 135 L Potassium 3.5 Chloride 104 Carbon Dioxide 18.0 L Anion Gap 13 BUN 5 L Creatinine 0.54 L Estim Creat Clear Calc 167.02 Est GFR (MDRD) Af Amer 159 Est GFR (MDRD) Non-Af 131 BUN/Creatinine Ratio 9.2 L Glucose 97 Calcium 8.8 POC Glucose 90 Radiography Chest X-Ray - ED: 2 View, Read by ED Physician, Heart, Lungs, Mediastinum, Bony Structures and No Acute Disease Diagnostic Testing: Clinical Impression(s) from Imaging Studies Chest X-Ray 09/21/24 23:30 IMPRESSION: NEGATIVE CHEST [facility] x-ray, 2 views, AP and lateral, interpreted by myself shows no acute abnormality. Normal cardiac silhouette. Normal lung coffman. No pneumonia. Discharge Plan Triage Chief Complaint: Cold Sx ED Provider: David Epperson Dx/Rx/DC Orders Clinical Impression: Influenza A, Third trimester , Gestational diabetes Instructions: Influenza (Flu) and Prescriptions: New ondansetron 4 mg tablet,disintegrating 4 mg PO Q6H PRN (Reason: nausea and vomiting) Qty: 7 0RF No Action insulin glargine [Lantus Solostar U-100 Insulin] 100 unit/mL (3 mL) insulin pen subcut aspirin 81 mg tablet,chewable 1 tab PO QDAY 19 29 mg iron- 1 mg tablet,chewable 1 tab PO QDAY cholecalciferol (vitamin D3) 50 mcg (2,000 unit) capsule 50 mcg PO QDAY Rx Instructions: Unsure of dose ascorbic acid (vitamin C) 500 mg capsule PO Rx Instructions: Unsure of dose bacitracin 500 unit/gram ointment 1 applic topical TID Qty: 14 0RF Primary Care Provider: Denver Lopez Referrals: Denver Lopez MD [Primary Care Provider] - As Needed María Elena Wu MD [Med Staff - Active Staff] - As Needed Activity Restrictions/Additional Instructions: You have influenza. Plenty of fluids and rest. Increase diet slowly as tolerated. Tylenol for any fevers. Follow-up with your [facility] [employer] or primary care physician as needed. Zofran as needed for nausea. You should start feeling better in the next 48 hours. Print Language: Arabic Disposition Disposition: Home, Self Care
[2024-09-21] MEDS: 0.9% Normal Saline (1000mL) 1,000 ML 1000 ML IV (23:14)
--- NOTE | 2024-09-21 23:23 | ED.RN ---
Dr. Epperson made aware that pt BP is elevated and gestational diabetes. Instructed to not call OB and to treat pt in ER.
--- NOTE | 2024-09-21 23:30 | RAD_ITS ---
PROCEDURE: CHEST PA AND LATERAL REASON FOR EXAM: Cough. TECHNIQUE: Frontal and lateral views of the chest. COMPARISON: None. FINDINGS: The heart size is normal. The mediastinal contour is unremarkable. The lungs are clear. The bones are unremarkable. RAD/Chest PA and Lateral IMPRESSION: NEGATIVE CHEST [facility]
[2024-09-21 23:32] VITALS: BP 140/98
[2024-09-21 23:34] LABS: Anion Gap 13 (5-15); BUN 5 mg/dL (7-18); BUN/Creat Ratio 9.2 RATIO (10-20); Calcium,Total 8.8 mg/dL (8.5-10.1); Chloride 104 mmol/L (98-107); Creatinine, Serum 0.54 mg/dL (0.55-1.02); EST Glomerular Filtration Rate 131 mL/min (>60); Est Glom Filt Rate - Afr Amer 159 mL/min (>60); Estimated Creatinine Clearance 167.02 ml/min; Glucose 97 mg/dL (74-106); Potassium 3.5 mmol/L (3.5-5.1); Sodium Level 135 mmol/L (136-145)
[2024-09-21 23:38] LABS: Bedside Glucose 90 mg/dL (74-106)
--- NOTE | 2024-09-22 00:59 | ED.RN ---
D/C vitals 162/74. Dr. Epperson notified, paged OB
[2024-09-22 01:00] VITALS: BP 162/74; PULSE 102; RESP 17; O2SAT 99
[2024-09-22] MEDS: ACETAMINOPHEN 160 MG/5 ML 500 MG PO (01:31)
[2024-09-22 01:38] VITALS: BP 139/84
[2024-09-22 01:51] VITALS: BP 139/84; PULSE 87; RESP 17; TEMP 36.6; O2SAT 99
== END 2024-09-22 01:51 | disposition home or self-care (01) ==
PROVIDERS: Emergency Provider Emergency Medicine; PCP Family Medicine; Visit Provider Emergency Medicine
DX: O99.513 Diseases of the respiratory system complicating pregnancy, third trimester (principal); J10.1 Influenza due to other identified influenza virus with other respiratory manifestations; O24.419 Gestational diabetes mellitus in pregnancy, unspecified control; Z3A.33 33 weeks gestation of pregnancy; O99.891 Other specified diseases and conditions complicating pregnancy; R11.0 Nausea
CPT/HCPCS: 71046; 80048; 82962; 87631; 96360; 96361; 99284; A4216

== ENCOUNTER 2024-09-27 12:45 | Outpatient (CLI) | payer MEDICAID, SELFPAY ==
[2024-09-27] VITALS (29 sets, daily range): BP systolic 135–171; BP diastolic 74–96; PULSE 78–110; RESP 16–18; TEMP 36.1–36.7; O2SAT 93–99; BMI 41.7
[2024-09-27 13:47] LABS: Hematocrit 31.7 % (37-47); Hemoglobin 10.7 g/dL (12.0-15.0); Mean Corp Hgb Conc 33.8 g/dL (32-36); Mean Corpuscular Hgb 26.1 pg (27.0-32.0); Mean Corpuscular Volume 77.3 fL (81-99); Mean Platelet Vol. 11.6 fl (6.2-12.0); Platelet Count 116 K/mm3 (150-450); RBC Distribution Width CV 13.7 % (11.6-14.6); RBC Distribution Width SD 38.3 fl (35.1-43.9); White Blood Count 2.5 K/mm3 (4.4-11.0)
[2024-09-27 14:37] LABS: AST(SGOT) 21 U/L (15-37); Alanine Aminotransfer ALT/SGPT 16 U/L (13-56); Creatinine, Serum 0.52 mg/dL (0.55-1.02); EST Glomerular Filtration Rate 139 mL/min (>60); Est Glom Filt Rate - Afr Amer 168 mL/min (>60); Estimated Creatinine Clearance 174.61 ml/min; Uric Acid 6.5 mg/dL (2.6-6.0)
[2024-09-27] MEDS: NIFEdipine 10 MG Capsule PO (15:10)
[2024-09-27] MEDS: Magnesium Sulfate 4gm/100mL 4 GM/100 ML IV.SOLN. IV (15:18)
[2024-09-27] MEDS: Magnesium Sulfate 20 GM/500 ML BAG IV (15:39)
[2024-09-27] MEDS: NIFEdipine 10 MG Capsule 20 MG PO (15:39)
[2024-09-27 16:42] LABS: Protein, Urine (Random) 12.5 mg/dL (<11.9); Protein:Creat Ratio 625 mg/g CRE (0-200)
--- NOTE | 2024-10-18 08:56 | OB.TRI.NOTE ---
HPI - General HPI Narrative DAVDI WHITLOCK, is a 39 F who presents for elevated BP. She was seen in office by Arabella Vela CNM. PFSH PFSH Medical History Migraines COVID-19 Pneumonia Hay fever Fatigue Anemia Home Medications ?Medication ?Instructions ?Recorded ?Last Taken ?Type ascorbic acid (vitamin C) 500 mg 500 mg PO DAILY 07/30/24 09/26/24 01:00 History capsule aspirin 81 mg chewable tablet 1 tab PO QDAY 07/30/24 09/27/24 07:00 History cholecalciferol (vitamin D3) 50 50 mcg PO QDAY 07/30/24 09/27/24 07:00 History mcg (2,000 unit) capsule insulin glargine 100 unit/mL (3 18 unit subcut .AM 07/30/24 09/27/24 09:30 History mL) subcutaneous pen (Lantus Solostar U-100 Insulin) vitamin no.115-iron 29 1 tab PO QDAY 07/30/24 09/27/24 08:00 History mg-folic acid 1 mg chewable tablet ( 19) insulin glargine 100 unit/mL (3 14 unit subcut QPM 09/27/24 Unknown History mL) subcutaneous pen insulin lispro 100 unit/mL 4 unit subcut LUNCH 09/27/24 09/27/24 12:00 History subcutaneous pen insulin lispro 100 unit/mL 8 unit subcut QPM 09/27/24 Unknown History subcutaneous pen Allergy/AdvReac Type Severity Reaction Status Date / Time cortisone Allergy Severe Hives Verified 09/27/24 13:39 prednisone Allergy Severe Anaphylaxis Verified 09/27/24 13:39 Family History Mother Cancer cervical Grandmother Kidney failure Grandfather Hypertension Grandmother Congestive heart failure Grandfather Alzheimer disease Surgical History History of salpingectomy Social History Smoking Status: Never smoker alcohol intake: current alcohol intake frequency: a few times a month Alcohol type: wine History Elective abortions Hx Para 6 Spontaneous abortions Hx # Term Pregnancies Ectopic pregnancies Hx # Pregnancies Multiple births # of living children Assessment & Plan (1) Severe pre-eclampsia affecting childbirth: PLAN: Plan Patient transferred to [facility] for further management.
== END 2024-09-27 17:29 | disposition short-term general hospital (02) ==
LOC: WPOUT 12:46 → WP 12:46
PROVIDERS: PCP Family Medicine; Referring Provider Advanced Practice Midwife; Visit Provider Advanced Practice Midwife
DX: O14.10 Severe pre-eclampsia, unspecified trimester (principal); Z3A.00 Weeks of gestation of pregnancy not specified
CPT/HCPCS: 96365; 96366; 36415; 59025; 59050; 82565; 82570; 84156; 84450; 84460; 84550; 85027; 99221; G0378